=== PATIENT | female | born 1980 | race Two or more races ===

== ENCOUNTER 2025-06-19 06:36 | Day surgery (SDC) | payer MEDICAID ==
[~2025-06-19] VITALS: Ht 172.7 cm; Wt 199.6 kg
[~2025-06-19 06:36] MED LIST: AMIT25TA19 PO; ATOR10TA52 PO; CHOL20007 OR; GABA-339 PO; HYDR50TA69 PO; LEVO112T4 PO; METO25TA93 PO; PERCOT PO; TIZA4CAP7 PO
[2025-06-19] MEDS: IODIXANOL 320MG/ML 100ML BTL IV ONE (07:24)
[2025-06-19] MEDS: ANGIOMAX 250 MG VIAL IV ONE (07:38)
[2025-06-19] MEDS: VERAPAMIL 2.5MG/ML INJ 2ML VIAL IV ONE (07:38)
[2025-06-19] MEDS: fentaNYL CITRATE 100 MCG/2 ML VL ONE (07:38)
[2025-06-19] MEDS: SODIUM CHL 0.9% 0 ML ONE (07:39)
[2025-06-19] MEDS: LIDOCAINE 2%HCL (LOCAL ANESTH.) INJ 20ML MDV ONE (07:39)
[2025-06-19] MEDS: MIDAZOLAM HCL 2MG/2ML 2ml VIAL (1mg/ml) ONE (07:39)
[2025-06-19] MEDS ORDERED: IODIXANOL 320MG/ML 100ML BTL IV ONE (07:59)
[2025-06-19] MEDS: HEPARIN SODIUM (PORCINE) 5000 UNITS/ML 1ML VIAL ONE (08:30)
[2025-06-19 09:00] VITALS: BP 120/62; PULSE 67; RESP 11; O2SAT 98
--- NOTE | 2025-06-19 09:00 | DVHOP2 ---
Operative Report Procedures performed: Left heart catheterization and bilateral coronary angiogram Moderate sedation Diagnosis: No angiographic evidence for epicardial coronary artery disease (normal coronaries) LVEF of 65% with normal EDP Cardiac suggestions for management: Optimized medical therapy Lifestyle and risk factor modifications Cardiac-franco, the patient is a low risk patient for moderate risk bariatric surgery. Findings: LVEF: 65% LVEDP: 8 mm Hg There was no transaortic valve pressure gradient Left main: Left main was coming off the left sinus of Valsalva. It was free of disease. LAD: LAD was coming off the left main. It provided a large diagonal. LAD throughout its course and branches was free of disease. LCX: LCX was coming off the left main. LCX throughout its course and branches was free of disease. RCA: RCA was coming off the right sinus of Valsalva. It was a dominant vessel and provided RPDA/RPLS. RCA throughout its course and branches was free of disease. Presentation: Patient is a 44-year-old female who presented to the office with dyspnea on exertion and morbid obesity. She was planned to go for bariatric surgery. Her comorbidities includes hypertension, osteoarthritis, depression, migraine, hypothyroidism, status post cholecystectomy/tonsillectomy and of course morbid obesity. Family history was positive for diabetes and coronary artery disease (father). Echocardiogram of February 2025 revealed ejection fraction of 60-65%, trace MR/TR and right ventricular systolic pressure of less than 35 mm Hg. Nuclear stress test of March 2025 was abnormal and the paul ent was sent for cardiac catheterization. Procedure: After obtaining informed consent, the patient was brought to slab grinder. She was prepped and draped in sterile fashion. 1 mg of Versed and 25 mcg of fentanyl were used for moderate sedation. At 1st we tried to get the right radial artery for access (we even used ultrasound for help). We were unsuccessful. We decided to proceed with getting femoral artery for access. Using ultrasound guidance and micro puncture, the right femoral artery was accessed. After angiographically proving a good access point, the micropuncture sheath was exchanged over a wire to a six [place] femoral sheath. A six [place] JL4 diagnostic catheter was used to perform left coronary angiography. A six [place] JR4 diagnostic catheter was used to perform right coronary angiography. A six [place] pigtail catheter was used to perform left heart catheterization (obtaining pressures and performing left ventriculography). There was no indication for any transcatheter revascularization. Total bleeding was less than 15 mL. There was no dissection/hematoma/perforation. Right femoral artery access site was managed by deploying an Angio-Seal device. Patient tolerated procedure with no complication. Fluoroscopy time: 3.5 minutes contrast: 80 mL of MAGGIE Ugarte MD Jun 19, 2025 09:00
[2025-06-19 09:15] VITALS: BP 118/65; PULSE 68; RESP 10; O2SAT 96
[2025-06-19 09:30] VITALS: BP 125/70; PULSE 69; RESP 11; O2SAT 99
[2025-06-19 09:45] VITALS: BP 107/41; PULSE 67; RESP 11; O2SAT 99
[2025-06-19 10:00] VITALS: BP 125/68; PULSE 65; RESP 17; O2SAT 100
[2025-06-19 10:30] VITALS: BP 109/55; PULSE 65; RESP 12; O2SAT 98
== END 2025-06-19 11:06 | disposition home or self-care (01) ==
LOC: CATH 06:36
PROVIDERS: ATTEND Internal Medicine Cardiovascular Disease
DX: R06.09 Other forms of dyspnea (principal); R94.39 Abnormal result of other cardiovascular function study; I10 Essential (primary) hypertension; E03.9 Hypothyroidism, unspecified; G43.909 Migraine, unspecified, not intractable, without status migrainosus; M19.90 Unspecified osteoarthritis, unspecified site; F32.A Depression, unspecified; F17.210 Nicotine dependence, cigarettes, uncomplicated; E66.01 Morbid (severe) obesity due to excess calories; Z68.44 Body mass index [BMI] 60.0-69.9, adult; Z79.890 Hormone replacement therapy; Z79.899 Other long term (current) drug therapy; Z90.49 Acquired absence of other specified parts of digestive tract; Z90.89 Acquired absence of other organs; Z88.1 Allergy status to other antibiotic agents; Z91.040 Latex allergy status; Z83.3 Family history of diabetes mellitus; Z82.49 Family history of ischemic heart disease and other diseases of the circulatory system
CPT/HCPCS: 93458; C1760; C1894; J1644; J2250; J3010; J7030; Q9967; 99152; 99153